=== PATIENT | male | born 1980 | race Caucasian/White ===

== ENCOUNTER 2025-09-29 13:39 | Outpatient (CLI) | payer BC | END 2025-09-29 13:40 | disposition home or self-care (01) | LOC: SCSMRI 13:39 | PROVIDERS: ATTEND Psychiatry & Neurology Neurology | DX: M54.16 Radiculopathy, lumbar region (principal); M48.061 Spinal stenosis, lumbar region without neurogenic claudication; M48.07 Spinal stenosis, lumbosacral region | CPT/HCPCS: 72148 ==